=== PATIENT | male | born 1995 | race Asian ===

== ENCOUNTER 2019-05-18 13:36 | Emergency (ER) | payer OTHER ==
[~2019-05-18] VITALS: Ht 170.2 cm; Wt 79.2 kg
--- NOTE | 2019-05-18 14:33 | REP ---
RIGHT KNEE, FIVE VIEWS: There is no evidence of an acute fracture, dislocation or intrinsic bone disease. IMPRESSION: No fracture or dislocation. Electronically Signed by Felice Rivera MD 05/18/2019 04:22 P
[2019-05-18 14:55] VITALS: BP 143/76
== END 2019-05-18 15:01 | disposition home or self-care (01) ==
LOC: M ED 13:36
DX: S89.91XA Unspecified injury of right lower leg, initial encounter (principal); X58.XXXA Exposure to other specified factors, initial encounter; Y92.89 Other specified places as the place of occurrence of the external cause; Y93.67 Activity, basketball; Y99.8 Other external cause status; F17.210 Nicotine dependence, cigarettes, uncomplicated